=== PATIENT | female | born 1935 | race African-American/Black ===

== ENCOUNTER 2017-01-12 09:06 | Outpatient (CLI) | payer MEDICARE, OTHER ==
[2013-05-11 01:01] VITALS: BP 185/90
--- NOTE | 2017-01-13 13:53 | HISTORY AND PHYSICAL REPORT ---
REFERRING PHYSICIAN: Dr. Annabelle Tobin Dear Dr. Tobin: HISTORY OF PRESENT ILLNESS: I had the opportunity of seeing Jen Tucker today as an outpatient at [facility]. As you are aware, Ms. Tucker is a delightful 81-year -old black female who has suffered right-sided foot pain which began in 1998. She had what she describes as a plantar fascia release done at that time complicated by keloid scarring and at this point, has relatively uncontrolled pain over the medial plantar aspect of the right foot associated with a large keloid formation in the plantar fascia. She said she has had a history of keloid formation throughout her life and that in the past surgical incisions that have been performed have resulted in a large amount of scar tissue but no chronic discomfort. At this point, she has both complaints of symptoms consistent with allodynia and hyperpathia and neuropathic pain in the right foot. She says that any contact of even light clothing, a sock or any compression of the foot, causes relatively severe pain. She has been using a 5 % lidocaine topical, which she says has been somewhat helpful. She had a steroid shot performed of the foot a couple of years ago and this did subsequently result in some relief, which was temporary but, however, she does not really remember how long the relief was lasting. PAST MEDICAL HISTORY: 1. History of vision problems. 2. Nose or sinus problems. 3. Heart failure. 4. Hypertension. 5. Kidney problems. 6. Depression and anxiety. 7. Thyroid disease. 8. Chronic pain. 9. Palpitations. 10. Osteoarthritis. 11. Multiple keloid scars. 12. High cholesterol. PAST SURGICAL HISTORY: 1. Tubal ligation. 2. Tonsillectomy. 3. Lumbar fusion. 4. Cancer cells removed from her uterus. 5. 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 6. Gallbladder removed. 7. Sinus surgery. 8. A spur removed from her right foot. 9. Plantar fascia release in 1998. 10. An upper back surgery in 2002. 11. Right knee meniscal repair. 12. Left foot spur removed in 2012. 13. Achilles tendon repair. 14. Bilateral cataracts removed and lens implanted. 15. Colonoscopy with polypectomy. CURRENT DAILY MEDICATIONS: 1. Fish oil 3 times a week. 2. Amlodipine 5 mg daily. 3. Labetalol 200 mg b.i.d. 4. Allopurinol 300 mg daily. 5. Valsartan 320 mg daily. 6. Torsemide 20 mg daily. 7. Clonidine 0.1 mg b.i.d. 8. Vitamin D 1000 international units daily. 9. Aspercreme p.r.n. 10. Tizanidine 2 mg p.r.n. 11. Hydrocodone 5/325 mg once daily p.r.n. 12. Lorazepam 0.5 mg p.r.n. 13. Aspirin 81 mg daily. 14. Topical pain reliever p.r.n. ALLERGIES: 1. Lisinopril. 2. Codeine. 3. Clarithromycin. 4. Diltiazem. 5. Fosinopril sodium. 6. Nifedipine. 7. Sertraline. 8. Sulfa. 9. Verapamil. 10. Hydrochlorothiazide. SOCIAL HISTORY: She has never used tobacco, alcohol, or recreational drugs. She is a . She has 8 children. She lives at home alone. She completed 1 year of college. She is currently retired. She is not disabled. FAMILY HISTORY: Family history includes a mother with heart disease and diabetes. Siblings with diabetes and cancer. REVIEW OF SYSTEMS: In the past month or so, she reports a weight gain, sinus infection, head cold, swelling in hands and feet, constipation, feeling depressed, feeling anxious, and headaches. Pain is worse with standing, walking, changes in weather, cold, stress, fatigue, driving, touch, getting up in the morning, in any position for too long, or weightbearing. Pain is improved with lying down, sitting, ice and elevating her foot. PHYSICAL EXAMINATION: Vital Signs: BP: 150/75, P: 70, R: 20, oxygen saturation is 98% on room air. General: The patient is well nourished, well developed, and in no apparent distress. Awake, alert, and oriented. HEENT: Pupils are equal, round, and reactive to light and accommodation. Extraocular movements intact. No facial droop. Neck: There is full range of motion of the cervical spine. No evidence of adenopathy. Thyroid is nontender, no enlarged. Carotids are without bruits. Chest: Clear to auscultation bilaterally. Normal. Chest excursion. Heart: Regular rate and rhythm without murmur. Abdomen: Benign. Normoactive bowel sounds. Motor/sensory: Intact in the upper and lower extremities. Moves all extremities freely. Extremities: The right foot was examined. There is evidence of pain with light touch to the skin. There is hyperpathic symptoms with light palpation over the area of the keloid scar. There is no reproduction of pain symptoms over the calcaneus or medial calcaneal nerve. There is relatively preserved range of motion of the foot. There is no manoj evidence of atopy of the skin. Back: There are normal cervical, thoracic and lumbar curvatures. There are negative sacroiliac joint findings bilaterally. No evidence of pain or tenderness over the facet joints. Negative piriformis bilaterally. Negative straight leg raise. No evidence of dermatomal weakness or numbness in the lower extremities. Bilateral negative femoral nerve stretch ASSESSMENT: 1. Chronic foot pain of 17 year duration, now exacerbated. 2. Entrapment, likely keloid entrapment of the posterior tibial nerve resulting in complex regional pain syndrome in the foot. PLAN: At this point, I think it would be reasonable to consider starting her on an oral antiepileptic agent such as Lyrica or Neurontin, that I am going to prescribe her a more potent, longer-lasting topical anesthetic. I have offered her and injection with monitored anesthesia care; however, she does not have a transportation driver and she ate breakfast this morning and therefore, I will need to reschedule this either as an outpatient at [facility] or at my office. I have also described possible stem cell therapy for the keloid scar. I have discussed possible dorsal root ganglion stimulation for complex regional pain symptoms of the foot; however, at this point, I think the first step should be a steroid injection with sedation and/or monitored anesthesia care. She seems to express agreement in this plan and willingness to proceed, and I will follow her up in the very near future. Dr. Tobin, thank you very much for allowing me to take part in the care of this nice lady. cc: Dr. Annabelle RODRIGUEZ
== END 2017-01-12 09:07 ==
LOC: OUT 09:06
PROVIDERS: ATTEND Anesthesiology Pain Medicine
DX: M79.671 Pain in right foot (principal); L91.0 Hypertrophic scar
CPT/HCPCS: 99214; G0463

== ENCOUNTER 2017-01-12 10:43 | Outpatient (CLI) | payer MEDICARE, OTHER ==
[2013-05-11 01:01] VITALS: BP 185/90
== END 2017-01-12 10:44 ==
LOC: RT 10:43
PROVIDERS: ATTEND Family Medicine
DX: R00.2 Palpitations (principal)
CPT/HCPCS: 93225

== ENCOUNTER 2017-02-09 08:25 | Outpatient (CLI) | payer MEDICARE, OTHER ==
[2013-05-11 01:01] VITALS: BP 185/90
--- NOTE | 2017-02-10 11:52 | SURGICAL PROCEDURE NOTE PAIN ---
PREOPERATIVE DIAGNOSES: 1. Right plantar neuralgia. 2. Keloid formation plantar release. 3. Posterior tibial nerve entrapment. ANESTHESIA: MAC anesthesia because of allodynia and hyperpathia and intolerance to even light touch of the right foot. ANESTHESIOLOGIST: Dayanara Rodriguez CRNA NAME OF PROCEDURE: Keloid injection of neuroma, right foot. DESCRIPTION OF PROCEDURE: The patient was positioned prone on fluoroscopic procedure table. A sterile prep and drape were applied. Under monitored anesthesia care, a number 25- gauge needle was taken at the proximal portion of the plantar fascia and an injection with 1% lidocaine with 0.25% bupivacaine and triamcinolone was placed in a fan wheel over the plantar surface of the right foot. The patient tolerated the procedure well. There were no apparent complications. She was taken to recovery room in good condition. I did discuss dorsal root ganglion injection for peripheral causalgia for planter nerve root entrapment. cc: Dr. Annabelle RODRIGUEZ
== END 2017-02-09 08:26 ==
LOC: OUT 08:25
PROVIDERS: ATTEND Anesthesiology Pain Medicine
DX: R20.8 Other disturbances of skin sensation (principal); G57.61 Lesion of plantar nerve, right lower limb
CPT/HCPCS: J2250; J2704; J3301; J3490; 64455; 99214; G0463

== ENCOUNTER 2017-03-16 | Outpatient (CLI) | payer MEDICARE, OTHER ==
--- NOTE | 2017-03-16 10:23 | PAIN CLINIC PROGRESS NOTES ---
REFERRING PHYSICIAN: Dr. Annabelle Tobin REASON FOR VISIT: I had the opportunity of following up with Jen Tucker today as an outpatient at [facility]. This is a delightful 81-year- old female with a history of keloid with scar entrapment of the heel of the foot. Her heel is much improved. She is able to walk on it. She has not been having any limitations. She still has an acutely tender area in the keloid that I recommended a repeat injection for. ASSESSMENT: Gluteal keloid with nerve root entrapment of the right plantar aspect of the foot. PLAN: She would like to have monitored anesthesia care as we did last time, and therefore, I will schedule her back next month. I did discuss dorsal root ganglion stimulation on her previously. At this point, I am going to see how she does with a repeat injection. cc: Dr. Annabelle RODRIGUEZ
== END 2017-03-16 08:37 ==
CPT/HCPCS: 99213; G0463

== ENCOUNTER 2017-04-17 08:29 | Outpatient (CLI) | payer MEDICARE, OTHER ==
[2013-05-11 01:01] VITALS: BP 185/90
[~2017-04-17 08:29] MED LIST: KETAMINE HCL 200 MG/20 ML VIAL ONE; Lidocaine 1% 5ml(IM or SUTURE)(PAIN CLINIC) ONE; MIDAZOLAM HCL 2 MG/2 ML VIAL ONE; NORMAL SALINE 500 ML IV.SOLN IV ONE; PROPOFOL 200 MG/20 ML VIAL IV ONE; SALINE FLUSH 10 ML DISP.SYRIN IVF ONE; TRIAMCINOLONE ACETONID 40MG/ML VIAL ONE
--- NOTE | 2017-04-17 10:48 | SURGICAL PROCEDURE NOTE PAIN ---
PLANTAR FASCIA NEUROMA INJECTION SUBJECTIVE: Ms. Tucker is a very pleasant 81-year-old female who follows up today with me at [facility]. She has a keloid of her plantar fascia from a previous surgery. I gave her an initial steroid injection and she is much improved; however, she tells me she continues to have pain and indicates the area over the keloid scar of the plantar fascia. It is very tender to palpation today, and she is requesting an anesthetic for pain of the injection site. I will plan today for a plantar fascia injection under monitored anesthesia care. ANESTHESIA: Monitor anesthesia care by Dayanara Arriola. PROCEDURE: Right plantar fascia neuroma injection under monitored anesthesia care. DESCRIPTION OF PROCEDURE: The risks and benefits of the procedure were explained to the patient, including the risk of infection, bleeding, nerve injury and worsened pain. Furthermore, I discussed the risk of steroid exposure causing hyperglycemia, hypertension, osteoporosis, and increased infectious risks. The patient understood the risks and requested that we proceed. Consent was obtained. The patient was positioned prone on the fluoroscopic procedure table. A sterile prep and drape were applied. Under monitored anesthesia care and sedation, a number 25-gauge needle was placed in the plantar fascia over the keloid in several locations with a total injection of triamcinolone acetate and 1% lidocaine. The patient tolerated the procedure. There were no apparent complications. She was discharged in good condition. ASSESSMENT: Right foot neuroma. PLAN: Right plantar fascia neuroma injection under monitored anesthesia care. FOLLOW UP: Return to clinic if problems develop or worsen. cc: Dr. Annabelle RODRIGUEZ
== END 2017-04-17 08:30 ==
LOC: OUT 08:29
PROVIDERS: ATTEND Anesthesiology Pain Medicine
DX: G57.61 Lesion of plantar nerve, right lower limb (principal)
CPT/HCPCS: J2250; J2704; J3301; J7060; 64455; 99213; G0463; S1016

== ENCOUNTER 2017-07-28 09:42 | Outpatient (CLI) | payer MEDICARE, OTHER ==
[2013-05-11 01:01] VITALS: BP 185/90
== END 2017-07-28 09:52 ==
LOC: RT 09:42
PROVIDERS: ATTEND Family Medicine
DX: Z53.9 Procedure and treatment not carried out, unspecified reason (principal)